=== PATIENT | male | born 1950 | race Caucasian/White ===

== ENCOUNTER 2024-08-31 06:48 | Day surgery (SDC) | payer MEDICARE, BC ==
[2024-08-31] MEDS: Dextrose 5%-0.45% NaCl 1,000 ML IV SCH (07:20)
[2024-08-31] MEDS ORDERED: Midazolam 1 MG/ML 2 ML SDV ONE (07:29)
[2024-08-31] MEDS ORDERED: fentaNYL 100 MCG/2 ML SDV IV ONE (07:30)
[2024-08-31] MEDS ORDERED: Midazolam 1 MG/ML 2 ML SDV IV ONE (07:30)
[2024-08-31] MEDS ORDERED: fentaNYL 100 MCG/2 ML SDV ONE (07:30)
[2024-08-31] MEDS: fentaNYL 100 MCG/2 ML SDV IV ONE ×2 (08:14→08:15)
[2024-08-31] MEDS: Midazolam 1 MG/ML 2 ML SDV IV ONE ×3 (08:16→08:27)
== END 2024-08-31 09:47 | disposition home or self-care (01) ==
LOC: DL.ENDO 06:48
PROVIDERS: ATTEND Internal Medicine Gastroenterology
DX: Z12.11 Encounter for screening for malignant neoplasm of colon (principal); R19.5 Other fecal abnormalities; K51.40 Inflammatory polyps of colon without complications; K57.30 Diverticulosis of large intestine without perforation or abscess without bleeding; I10 Essential (primary) hypertension; E78.5 Hyperlipidemia, unspecified; I49.9 Cardiac arrhythmia, unspecified; Z79.899 Other long term (current) drug therapy
CPT/HCPCS: 45385; 88305; J2250; J3010; J7799